=== PATIENT | female | born 1955 | race Caucasian/White ===

== ENCOUNTER 2019-06-28 11:13 | Observation (INO) | payer OTHER ==
[2019-06-28 11:26] LABS: Glucose,Whole Blood 348 mg/dL (75-99)
--- NOTE | 2019-06-28 11:44 | ED ---
General Adult HPI - General Chief complaint: Recheck/Abnormal Lab/Rx Stated complaint: High Blood Sugar Time Seen by Provider: 06/28/19 11:27 Source: patient Mode of arrival: ambulatory Limitations: no limitations - History of Present Illness Initial comments: Patient presents the ED with her daughter for evaluation. Patient states that she has had intermittent left visual field "distortion" for the past week or so and she states that she had another episode at about 8:30am this morning. She states that her episode this morning lasted for about 15 minutes, which was longer than prior episodes lasted, so she called her daughter and decided to com e to the ED. Patient states that she checked her blood glucose prior to coming to the ED, and it was in the low 300s. Patient states that she is not a known diabetic. Patient also states that her blood pressure reading was elevated this morning, and she states that she has not a known hypertensive. Patient states that she has not seen a physician in many years, and she denies having a primary care provider. Patient denies having any symptoms whatsoever currently. Patient denies having any pain, fever or chills, headache, focal numbness/weakness, dizziness, speech difficulty, eye pain, chest pain, dyspnea, cough or cold symptoms, palpitations, abdominal pain, nausea/vomiting/diarrhea, dysuria or urinary symptoms, or any other symptoms or complaints. - Related Data Allergies Allergy/AdvReac Type Severity Reaction Status Date / Time No Known Allergies Allergy Verified 06/28/19 11:25 Review of Systems ROS Statement: Those systems with pertinent positive or pertinent negative responses have been documented in the HPI. ROS Other: All systems not noted in ROS Statement are negative. Past Medical History Past Medical History: No Reported History History of Any Multi-Drug Resistant Organisms: None Reported Past Surgical History: No Surgical Hx Reported Past Psychological History: No Psychological Hx Reported Smoking Status: Former smoker Past Alcohol Use History: None Reported Past Drug Use History: None Reported General Exam Limitations: no limitations General appearance: alert, in no apparent distress Head exam: Present: atraumatic, normocephalic Eye exam: Present: normal appearance, PERRL, EOMI ENT exam: Present: mucous membranes moist Neck exam: Present: other (Trachea is in midline) Respiratory exam: Present: normal lung sounds bilaterally. Absent: respiratory distress, wheezes, rales, rhonchi Cardiovascular Exam: Present: regular rate, normal rhythm, normal heart sounds, other (Normal radial pulses bilaterally) GI/Abdominal exam: Present: soft. Absent: distended, tenderness Extremities exam: Present: full ROM. Absent: tenderness, pedal edema, calf tenderness Neurological exam: Present: alert, oriented X3, CN II-XII intact, other (Normal finger to nose exam bilaterally). Absent: motor sensory deficit Psychiatric exam: Present: normal affect, normal mood Skin exam: Present: warm, dry, intact, normal color Course Vital Signs 06/28/19 06/28/19 06/28/19 11:20 11:40 12:15 Temperature 98.1 F 97.6 F Pulse Rate 111 H 113 H 109 H Pulse Rate [ Credit Control Assistant ] Respiratory 19 15 15 Rate Blood Pressure 189/103 176/114 182/112 O2 Sat by Pulse 98 94 L 94 L Oximetry 06/28/19 06/28/19 12:16 12:58 Temperature Pulse Rate 119 H Pulse Rate [ 113 H Credit Control Assistant ] Respiratory 15 15 Rate Blood Pressure 149/102 O2 Sat by Pulse 97 Oximetry - Reevaluation(s) Reevaluation #1: 06/28/19 13:16 Patient continues to deny having any symptoms or visual disturbance while in the ED. She continues to have a normal neurological exam. Patient's blood pressure has improved, but is still elevated. Given the patient is currently asymptomatic, will not acutely treat her elevated blood pressure. Patient and family are aware of the patient's test results, and patient agrees with hospital admission at this time. 06/28/19 13:49 Case, H&P, test results and ED management were discussed with Dr. Daniels who is currently in the ED. He accepts hospital floor admission. He has no further rectal condition at this time. EKG Findings - EKG Comments: EKG Findings:: Sinus tachycardia, ventricular rate of 106 bpm, no ectopy, normal CT and QRS intervals, normal QT interval, normal axis, no ST or T-wave abnormality Medical Decision Making - Medical Decision Making Given the patient's symptoms of transient and intermittent left visual field disturbances over the past week or so, I feel that the patient should be admitted to the hospital for a TIA workup. Patient's blood glucose is elevated, but she is not acidotic or ketotic. Patient was given a liter of IV normal saline in the ED. Will not treat the patient's elevated blood pressure given that she is a symptomatic. Patient agrees with hospital admission at this time. Patient was given aspirin 325 mg by mouth in the emergency department. - Lab Data Result diagrams: 06/28/19 11:41 06/28/19 11:41 Lab Results 06/28/19 06/28/19 06/28/19 Range/Units 11:24 11:41 11:41 WBC 8.9 (3.8-10.6) k/uL RBC 5.37 (3.80-5.40) m/uL Hgb 16.0 (11.4-16.0) gm/dL Hct 45.6 (34.0-46.0) % MCV 84.8 (80.0-100.0) fL MCH 29.7 (25.0-35.0) pg MCHC 35.0 (31.0-37.0) g/dL RDW 12.6 (11.5-15.5) % Plt Count 394 (150-450) k/uL Neutrophils % 68 % Lymphocytes % 25 % Monocytes % 4 % Eosinophils % 1 % Basophils % 0 % Neutrophils # 6.0 (1.3-7.7) k/uL Lymphocytes # 2.2 (1.0-4.8) k/uL Monocytes # 0.4 (0-1.0) k/uL Eosinophils # 0.1 (0-0.7) k/uL Basophils # 0.0 (0-0.2) k/uL PT (9.0-12.0) sec INR (<1.2) APTT (22.0-30.0) sec Sodium 136 L (137-145) mmol/L Potassium 4.2 (3.5-5.1) mmol/L Chloride 102 (98-107) mmol/L Carbon Dioxide 23 (22-30) mmol/L Anion Gap 11 mmol/L BUN 13 (7-17) mg/dL Creatinine 0.58 (0.52-1.04) mg/dL Est GFR (CKD-EPI)AfAm >90 (>60 ml/min/1.73 sqM) Est GFR (CKD-EPI)NonAf >90 (>60 ml/min/1.73 sqM) Glucose 357 H (74-99) mg/dL POC Glucose (mg/dL) 348 H (75-99) mg/dL POC Glu Personal Financial Advisor ID Juliet Lopez Calcium 9.6 (8.4-10.2) mg/dL Total Bilirubin 0.7 (0.2-1.3) mg/dL AST 26 (14-36) U/L ALT 32 (4-34) U/L Alkaline Phosphatase 89 (38-126) U/L Troponin I (0.000-0.034) ng/mL Total Protein 7.2 (6.3-8.2) g/dL Albumin 4.3 (3.5-5.0) g/dL Acetone, Qual Negative (Negative) 06/28/19 06/28/19 Range/Units 11:41 11:41 WBC (3.8-10.6) k/uL RBC (3.80-5.40) m/uL Hgb (11.4-16.0) gm/dL Hct (34.0-46.0) % MCV (80.0-100.0) fL MCH (25.0-35.0) pg MCHC (31.0-37.0) g/dL RDW (11.5-15.5) % Plt Count (150-450) k/uL Neutrophils % % Lymphocytes % % Monocytes % % Eosinophils % % Basophils % % Neutrophils # (1.3-7.7) k/uL Lymphocytes # (1.0-4.8) k/uL Monocytes # (0-1.0) k/uL Eosinophils # (0-0.7) k/uL Basophils # (0-0.2) k/uL PT 9.6 (9.0-12.0) sec INR 0.9 (<1.2) APTT 23.1 (22.0-30.0) sec Sodium (137-145) mmol/L Potassium (3.5-5.1) mmol/L Chloride (98-107) mmol/L Carbon Dioxide (22-30) mmol/L Anion Gap mmol/L BUN (7-17) mg/dL Creatinine (0.52-1.04) mg/dL Est GFR (CKD-EPI)AfAm (>60 ml/min/1.73 sqM) Est GFR (CKD-EPI)NonAf (>60 ml/min/1.73 sqM) Glucose (74-99) mg/dL POC Glucose (mg/dL) (75-99) mg/dL POC Glu Personal Financial Advisor ID Calcium (8.4-10.2) mg/dL Total Bilirubin (0.2-1.3) mg/dL AST (14-36) U/L ALT (4-34) U/L Alkaline Phosphatase (38-126) U/L Troponin I <0.012 (0.000-0.034) ng/mL Total Protein (6.3-8.2) g/dL Albumin (3.5-5.0) g/dL Acetone, Qual (Negative) - Radiology Data Radiology results: report reviewed (Noncontrast head CT shows no acute intracranial abnormality), image reviewed (Chest x-ray is negative) Disposition Clinical Impression: Hyperglycemia, Hypertension, Visual disturbance Disposition: ADMITTED IP TO THIS HOSP Condition: Stable Is patient prescribed a controlled substance at d/c from ED?: No Referrals: Tracey Rojas DO [Primary Care Provider] - 1-2 days Time of Disposition: 13:49
[2019-06-28] MEDS ORDERED: SODIUM CHLORIDE 0.9% 1,000 ML IV ONE (12:19)
--- NOTE | 2019-06-28 12:24 | XR ---
EXAMINATION TYPE: XR chest 2V DATE OF EXAM: 06/28/2019 COMPARISON: NONE HISTORY: Hyperglycemia and hypertension. Vision defect. TECHNIQUE: Frontal and lateral views of the chest are obtained. FINDINGS: There is no focal air space opacity, pleural effusion, or pneumothorax seen. The cardiac silhouette size is within normal limits. Overlying EKG leads. The osseous structures are intact. IMPRESSION: No acute cardiopulmonary process.
--- NOTE | 2019-06-28 12:26 | CT ---
EXAMINATION TYPE: CT brain wo con DATE OF EXAM: 06/28/2019 HISTORY: Left sided blurriness and vision changes. CT DLP: 1011.4 mGycm. Automated Exposure Control for Dose Reduction was Utilized. TECHNIQUE: CT scan of the head is performed without contrast. COMPARISON: None. FINDINGS: There is no acute intracranial hemorrhage or midline shift identified. There is diffuse v entricular and sulcal prominence consistent with diffuse age-related cerebral atrophy. The quijano-white matter differentiation is fairly well-maintained. The globes are intact and the visualized sinuses are clear. IMPRESSION: No acute intracranial hemorrhage or midline shift. There is mild diffuse age-related ce rebral atrophy noted.
[2019-06-28 12:27] LABS: Basophils % (A) 0 %; Eosinophils # (A) 0.1 k/uL (0-0.7); Eosinophils % (A) 1 %; HCT 45.6 % (34.0-46.0); Lymphocytes # (A) 2.2 k/uL (1.0-4.8); Lymphocytes % (A) 25 %; MCH 29.7 pg (25.0-35.0); MCV 84.8 fL (80.0-100.0); Mean Platelet Volume 7.5; Monocytes # (A) 0.4 k/uL (0-1.0); Monocytes % (A) 4 %; Neutrophils % (A) 68 %; Platelet Count 394 k/uL (150-450); RBC 5.37 m/uL (3.80-5.40); RDW 12.6 % (11.5-15.5); WBC 8.9 k/uL (3.8-10.6)
[2019-06-28 12:34] LABS: INR 0.9 (<1.2); Partial Thromboplastin Time 23.1 sec (22.0-30.0); Prothrombin Time 9.6 sec (9.0-12.0)
[2019-06-28] MEDS ORDERED: ASPIRIN 325 MG TAB PO STA (12:37)
[2019-06-28 12:39] LABS: ALT 32 U/L (4-34); AST 26 U/L (14-36); African American GFR (CKD) >90 (>60 ml/min/1.73 sqM); Albumin 4.3 g/dL (3.5-5.0); Alkaline Phosphatase 89 U/L (38-126); Anion Gap 11 mmol/L; Blood Urea Nitrogen 13 mg/dL (7-17); Calcium 9.6 mg/dL (8.4-10.2); Carbon Dioxide 23 mmol/L (22-30); Chloride 102 mmol/L (98-107); Glucose 357 mg/dL (74-99); Non-African American GFR(CKD) >90 (>60 ml/min/1.73 sqM); Potassium 4.2 mmol/L (3.5-5.1); Sodium 136 mmol/L (137-145); Total Bilirubin 0.7 mg/dL (0.2-1.3); Total Protein 7.2 g/dL (6.3-8.2)
[2019-06-28] MEDS: SODIUM CHLORIDE 0.9% 1,000 ML IV SCH (14:15)
[2019-06-28 14:19] LABS: Glucose,Whole Blood 283 mg/dL (75-99)
--- NOTE | 2019-06-28 14:26 | P.HPIM ---
History of Present Illness this is a pleasant 64 years old female with no significant past medical history, she does not follow up with her PCP. patient presents because she has transient blurry vision in her left eye that last for 2-3 minutes each time, this been going on for about a week however this morning it lasted some more about 15-20 minutes so she came to emergency room. Currently her vision is back to normal. She denies headache. No confusion, no weakness or abnormal sensation. on admission patient is tachycardic with heart rate of 113-119, blood pressure was elevated 182/112, currently 149/102. Unremarkable CBC, INR, Sugar Was Elevated at [address] of the brain: Negative for acute process per radiologistthe chest x-ray no acute process.EKG showing sinus tachycardia at [address]-T changes and QTC of 454.in the emergency room patient was started on aspirin 325 mg and received normal saline boluses of 1 L and at 80 mL per hour Review of Systems CONSTITUTIONAL: No fever, no malaise, no fatigue. HEENT: No recent visual problems or hearing problems. Denied any sore throat. CARDIOVASCULAR: No orthopnea, PND, no palpitations, no syncope. PULMONARY: No shortness of breath, no cough, no hemoptysis. GASTROINTESTINAL: No diarrhea, no nausea, no vomiting, no abdominal pain. Normoactive bowel sounds. NEUROLOGICAL: No headaches, no weakness, no numbness. HEMATOLOGICAL: Denies any bleeding or petechiae. GENITOURINARY: Denies any burning micturition, frequency, or urgency. MUSCULOSKELETAL/RHEUMATOLOGICAL: Denies any joint pain, swelling, or any muscle pain. ENDOCRINE: Denies any polyuria or polydipsia. Past Medical History Past Medical History: No Reported History History of Any Multi-Drug Resistant Organisms: None Reported Past Surgical History: No Surgical Hx Reported Past Psychological History: No Psychological Hx Reported Smoking Status: Former smoker Past Alcohol Use History: None Reported Past Drug Use History: None Reported Medications and Allergies Allergies Allergy/AdvReac Type Severity Reaction Status Date / Time No Known Allergies Allergy Verified 06/28/19 11:25 Physical Exam Vitals: Vital Signs Temp Pulse Pulse Resp BP Pulse Ox 06/28/19 12:58 119 H 15 149/102 97 06/28/19 12:16 113 H 15 06/28/19 12:15 109 H 15 182/112 94 L 06/28/19 11:40 97.6 F 113 H 15 176/114 94 L 06/28/19 11:20 98.1 F 111 H 19 189/103 98 Intake and Output 06/27/19 06/28/19 06/28/19 22:59 06:59 14:59 Intake Total 10 Balance 10 Intake: IV 10 Invasive Line 1 10 Other: Weight 81.647 kg GENERAL: The patient is alert and oriented x3, not in any acute distress. Well developed, well nourished. -HEENT: Pupils are round and equally reacting to light. EOMI. No scleral icterus. No conjunctival pallor. Normocephalic, atraumatic. No pharyngeal erythema. No thyromegaly. dry mucous membranes CARDIOVASCULAR: S1 and S2 present. No murmurs, rubs, or gallops. PULMONARY: Chest is clear to auscultation, no wheezing or crackles. ABDOMEN: Soft, nontender, nondistended, normoactive bowel sounds. No palpable organomegaly. MUSCULOSKELETAL: No joint swelling or deformity. EXTREMITIES: No cyanosis, clubbing, or pedal edema. NEUROLOGICAL: Gross neurological examination did not reveal any focal deficits. SKIN: No rashes. No petechiae Results CBC & Chem 7: 06/28/19 11:41 06/28/19 11:41 Labs: Abnormal Lab Results - Last 24 Hours (Table) 06/28/19 06/28/19 Range/Units 11:24 11:41 Sodium 136 L (137-145) mmol/L Glucose 357 H (74-99) mg/dL POC Glucose (mg/dL) 348 H (75-99) mg/dL Assessment and Plan Assessment: transient blurred vision in her left eye for about a week,possible TIA Hyperglycemia, rule out diabetes mellitus dehydration hypertension Plan: this is a pleasant 64 years old female who presents with possible TIA, we'll ask for neurological evaluation. Start insulin sliding scale. Start blood pressure medication with metoprolol.check hemoglobin A1c. Continue with IV fluids. Labs and medication were reviewed.. Continue same treatment. Continue with symptomatic treatment. Resume home medication. Monitor lytes and vitals. DVT and GI prophylaxis. Further recommendations of the clinical course of the patient DVT prophylaxis: Subcutaneous heparin GI Prophylaxis: Pepcid Prognosis is guarded
--- NOTE | 2019-06-28 16:22 | P.CNNES ---
History of Present Illness Consult date: 06/28/19 Requesting physician: Cullen Daniels Reason for Consult: Recurrent TIA History of Present Illness: Patient is a 64-year-old female with no significant past medical history, came with recurrent left-sided visual symptoms. Patient states the first episode happened last 06/22/2019 when she noticed distorted vision in the left half of visual field in both eyes. Patient states that she did close one, and then the other eye, and it involved both eyes, only the left half of the visual field. Patient states that it felt as if there was an earthquake, and distorted vision, everything was falling down. The episode lasted for 2-3 minutes and then resolved. She has been having these episodes about every 2-5 hours since then, each lasting for about 2-3 minutes and then clears up. Today was the longest, lasting for 15-20 minutes, which made her concerned and she decided to come to the ER. Patient denies any other focal neurological symptoms whatsoever associated with this. Denies any chest pain, shortness of breath. Patient denies any history of hypertension and diabetes. She has smoked 1-1/2 pack per day for 10 years, quit 20+ years ago. Patient does not take any antiplatelet medication at home. Patient underwent EKG which showed sinus tachycardia. Chest x-ray was normal. Computed tomography scan of the head showed no acute intracranial hemorrhage or midline shift. There is mild diffuse age-related cerebral atrophy noted. Patient's blood test shows normal CBC, PT/PTT. Sodium is 136, potassium 4.2. Her blood sugars are running around 350 range. Liver panel is normal. Review of Systems As mentioned in detail in HPI. Past Medical History Past Medical History: No Reported History Additional Past Medical History / Comment(s): Migraines many years ago History of Any Multi-Drug Resistant Organisms: None Reported Past Surgical History: Tubal Ligation Past Anesthesia/Blood Transfusion Reactions: No Reported Reaction Smoking Status: Former smoker - Past Family History Father Family Medical History: Diabetes Mellitus Additional Family Medical History / Comment(s): Father is 93 yrs old. Mother Family Medical History: Diabetes Mellitus Additional Family Medical History / Comment(s): Heart problems. Mother is . Medications and Allergies Home Medications Medication Instructions Recorded Confirmed Type Ibuprofen [Advil] 400 mg PO Q12H PRN 06/28/19 06/28/19 History Allergies Allergy/AdvReac Type Severity Reaction Status Date / Time No Known Allergies Allergy Verified 06/28/19 14:34 Physical Examination - Vital Signs Vital Signs: Vital Signs Temp Pulse Pulse Resp BP Pulse Ox 06/28/19 14:38 97 18 180/1 94 L 06/28/19 14:01 98.4 F 96 17 186/107 99 06/28/19 12:58 119 H 15 149/102 97 06/28/19 12:16 113 H 15 06/28/19 12:15 109 H 15 182/112 94 L 06/28/19 11:40 97.6 F 113 H 15 176/114 94 L 06/28/19 11:20 98.1 F 111 H 19 189/103 98 Intake and Output 06/28/19 06/28/19 06/28/19 06:59 14:59 22:59 Intake Total 1010 Balance 1010 Intake: IV 10 Invasive Line 1 10 Amount of Fluid Infused ( 1000 ml) Other: Weight 81.647 kg On examination patient is a late middle aged female, in no distress. Patient is alert and awake fully oriented. Her speech and language functions are normal. Attention and concentration fund of knowledge is adequate. On cranial nerve examination pupils are round and reacting to light. Visual salcido are full on confrontation in either eyes. Extraocular muscles are intact. Face is symmetric and tongue protrudes to the midline. Palatal elevation and sensation normal. On muscle strength testing there is no pronator drift and the strength is normal in arms and legs distally and proximally. Reflexes are symmetric and plantars downgoing. Sensory touch is equal. No ataxia for [id number] testing. Tone and bulk of muscles normal. There is no carotid bruit or murmur and peripheral pulses are present. Results - Laboratory Findings CBC and BMP: 06/28/19 11:41 06/28/19 11:41 Abnormal Lab Findings: Abnormal Labs 06/28/19 06/28/19 06/28/19 11:24 11:41 14:06 Sodium 136 L Glucose 357 H POC Glucose (mg/dL) 348 H 283 H Assessment and Plan Assessment: * Recurrent TIAs manifesting with distorted vision in the left homonymous hemianopic visual field, involving both eyes. Symptoms completely resolved with NIH stroke scale is 0. * Hypertension * Probable new onset diabetes. Plan: * CTA of head and neck to rule out any large vessel occlusion or stenosis. * 2-D echo with bubble study, to rule out PFO. * Agree with checking hemoglobin A1c. We will also check fasting lipid panel. * Continue aspirin 325 mg daily.
[2019-06-28 16:53] LABS: Glucose,Whole Blood 259 mg/dL (75-99)
[2019-06-28] MEDS: INSULIN ASPART (NovoLOG) 100 UNIT/ML VIAL SQ SCH ×2 (18:19→21:39)
[2019-06-28] MEDS: HEPARIN SODIUM,PORCINE 5,000 UNIT/ML 1 ML VIAL SQ SCH (20:04)
[2019-06-28] MEDS: FAMOTIDINE 20 MG/2 ML VIAL IV SCH (20:04)
[2019-06-28] MEDS ORDERED: GLIMEPIRIDE 1 MG TAB PO ONE (20:09)
--- NOTE | 2019-06-28 20:29 | CT ---
EXAMINATION TYPE: CT angio head neck DATE OF EXAM: 06/28/2019 COMPARISON: None HISTORY: Neck pain and headache x 1 month, getting progressively worse. CT DLP: 505.2 mGycm Automated exposure control for dose reduction was used. CONTRAST: Performed with IV Contrast, patient injected with 65 mL of Isovue 370. Multiple axial sections were obtained from the aortic arch to the vertex of the brain with intravenou s contrast. There are 3-D post processed images There is normal branching pattern of the great vessels on the aortic arch. There is bilateral arteria l flow in the subclavian arteries. There is bilateral arterial flow in the common internal and digital sales director al carotid arteries. There is bilateral arterial flow in the vertebral arteries which are fairly symm etric. There is no evidence of carotid or vertebral artery aneurysm or dissection. I see no evidence of hemodynamic stenosis of the carotid or vertebral arteries. There is arterial flow in the vertebrob asilar artery system. There is normal contrast opacification of the venous sinuses. There is arterial flow in the anterior middle and posterior cerebral arteries. I see no evidence of hemodynamic stenosis. There is no sign o f aneurysm or neovascularity. There is no mass effect. IMPRESSION: Negative CT angiogram of the neck. Negative CT angiogram of the brain.
[2019-06-28 20:46] LABS: Glucose,Whole Blood 239 mg/dL (75-99)
[2019-06-28] MEDS ORDERED: METOPROLOL SUCCINATE (ER) 25 MG TAB.ER.24H PO SCH (21:00)
[2019-06-29 00:13] VITALS: TEMP 97.8
[2019-06-29] MEDS: SODIUM CHLORIDE 0.9% 1,000 ML IV SCH (02:30)
[2019-06-29 03:14] LABS: Hemoglobin A1C 13.4 % (4.0-6.0)
[2019-06-29 06:04] LABS: Glucose,Whole Blood 173 mg/dL (75-99)
[2019-06-29] MEDS: INSULIN ASPART (NovoLOG) 100 UNIT/ML VIAL SQ SCH ×2 (06:29→12:49)
[2019-06-29 06:36] LABS: Basophils % (A) 0 %; Eosinophils # (A) 0.2 k/uL (0-0.7); Eosinophils % (A) 3 %; HCT 43.6 % (34.0-46.0); HGB 15.1 gm/dL (11.4-16.0); Lymphocytes % (A) 39 %; MCH 29.8 pg (25.0-35.0); MCHC 34.6 g/dL (31.0-37.0); MCV 86.3 fL (80.0-100.0); Mean Platelet Volume 7.9; Monocytes # (A) 0.5 k/uL (0-1.0); Monocytes % (A) 6 %; Neutrophils # (A) 3.7 k/uL (1.3-7.7); Neutrophils % (A) 49 %; Platelet Count 342 k/uL (150-450); RBC 5.05 m/uL (3.80-5.40); RDW 12.7 % (11.5-15.5); WBC 7.6 k/uL (3.8-10.6)
[2019-06-29 06:46] LABS: ALT 27 U/L (4-34); AST 24 U/L (14-36); African American GFR (CKD) >90 (>60 ml/min/1.73 sqM); Albumin 3.4 g/dL (3.5-5.0); Alkaline Phosphatase 68 U/L (38-126); Anion Gap 9 mmol/L; Blood Urea Nitrogen 13 mg/dL (7-17); Calcium 8.8 mg/dL (8.4-10.2); Carbon Dioxide 22 mmol/L (22-30); Chloride 107 mmol/L (98-107); Cholesterol 248 mg/dL (<200); Glucose 170 mg/dL (74-99); HDL Cholesterol 37 mg/dL (40-60); LDL Cholesterol,Calculated 155 mg/dL (0-99); Non-African American GFR(CKD) >90 (>60 ml/min/1.73 sqM); Potassium 3.7 mmol/L (3.5-5.1); Sodium 138 mmol/L (137-145); Total Bilirubin 0.7 mg/dL (0.2-1.3); Total Protein 5.9 g/dL (6.3-8.2); Triglycerides 282 mg/dL (<150)
[2019-06-29] MEDS ORDERED: GLIMEPIRIDE 2 MG TAB PO SCH (07:30)
[2019-06-29] MEDS: FAMOTIDINE 20 MG/2 ML VIAL IV SCH (08:24)
[2019-06-29] MEDS: HEPARIN SODIUM,PORCINE 5,000 UNIT/ML 1 ML VIAL SQ SCH (08:24)
[2019-06-29 08:29] VITALS: RESP 16
[2019-06-29] MEDS ORDERED: ASPIRIN 325 MG TAB PO SCH (09:00)
[2019-06-29] MEDS ORDERED: METOPROLOL TARTRATE 25 MG TAB PO SCH (09:00)
[2019-06-29] MEDS ORDERED: ATORVASTATIN 40 MG TAB PO SCH (10:45)
--- NOTE | 2019-06-29 10:45 | P.PN ---
Subjective Progress Note Date: 06/29/19 Patient denies any new neurological symptoms. Patient has not had any further visual symptoms since yesterday morning. Denies headache. Objective - Vital Signs Vital signs: Vital Signs Temp 97.8 F 06/29/19 00:10 Pulse 90 06/29/19 08:00 Resp 16 06/29/19 08:00 BP 161/93 06/29/19 08:00 Pulse Ox 97 06/29/19 08:00 Intake & Output 06/28/19 06/29/19 06/29/19 18:59 06:59 18:59 Intake Total 1260 250 Balance 1260 250 Weight 81.647 kg 87.1 kg Intake: IV 20 Invasive Line 1 20 Amount of Fluid Infused ( 1000 ml) Oral 240 250 Other: Voiding Method Toilet # Voids 2 1 2 - Exam Completely nonfocal. Visual salcido are full. No neglect. - Labs CBC & Chem 7: 06/29/19 05:09 06/29/19 05:09 Labs: Abnormal Lab Results - Last 24 Hours (Table) 06/28/19 06/28/19 06/28/19 Range/Units 11:24 11:41 11:41 Sodium 136 L (137-145) mmol/L Glucose 357 H (74-99) mg/dL POC Glucose (mg/dL) 348 H (75-99) mg/dL Hemoglobin A1c 13.4 H (4.0-6.0) % Total Protein (6.3-8.2) g/dL Albumin (3.5-5.0) g/dL Triglycerides (<150) mg/dL Cholesterol (<200) mg/dL LDL Cholesterol, Calc (0-99) mg/dL HDL Cholesterol (40-60) mg/dL 06/28/19 06/28/19 06/28/19 Range/Units 14:06 16:50 20:45 Sodium (137-145) mmol/L Glucose (74-99) mg/dL POC Glucose (mg/dL) 283 H 259 H 239 H (75-99) mg/dL Hemoglobin A1c (4.0-6.0) % Total Protein (6.3-8.2) g/dL Albumin (3.5-5.0) g/dL Triglycerides (<150) mg/dL Cholesterol (<200) mg/dL LDL Cholesterol, Calc (0-99) mg/dL HDL Cholesterol (40-60) mg/dL 06/29/19 06/29/19 Range/Units 05:09 06:02 Sodium (137-145) mmol/L Glucose 170 H (74-99) mg/dL POC Glucose (mg/dL) 173 H (75-99) mg/dL Hemoglobin A1c (4.0-6.0) % Total Protein 5.9 L (6.3-8.2) g/dL Albumin 3.4 L (3.5-5.0) g/dL Triglycerides 282 H (<150) mg/dL Cholesterol 248 H (<200) mg/dL LDL Cholesterol, Calc 155 H (0-99) mg/dL HDL Cholesterol 37 L (40-60) mg/dL Assessment and Plan Assessment: * Recurrent TIAs manifesting with distorted vision in the left homonymous hemianopic visual field, involving both eyes. Symptoms completely resolved with NIH stroke scale is 0. * Hypertension * New onset diabetes. * Hyperlipidemia Plan: * CTA of head and neck negative for any large vessel occlusion or stenosis. * Await 2-D echo with bubble study, to rule out PFO. Patient desperate to go home. May perform 2-D echo as an outpatient. * Hemoglobin A1c 13.4 consistent with newly diagnosed, uncontrolled diabetes. Further recommendations regarding diabetes as per IM. * Fasting lipid panel showed cholesterol 248, LDL 155, HDL 37 triglycerides 282. Agree with starting Lipitor 40 mg daily. * Optimize control of hypertension as per IM. * Continue aspirin 325 mg daily. * Follow-up with manager aviation as an outpatient to evaluate for visual salcido, and rule out any diabetic retinopathy. * Neurologically clear for discharge with above recommendations.
[2019-06-29] MEDS ORDERED: METOPROLOL TARTRATE 25 MG TAB PO STA (10:57)
[2019-06-29 11:59] LABS: Glucose,Whole Blood 226 mg/dL (75-99)
--- NOTE | 2019-06-29 12:41 | P.DS ---
Providers Date of admission: 06/28/19 13:50 Attending physician: Cullen Daniels MD Consults: 06/28/19 13:57 Consult Physician Urgent Consulting Provider: Rudi Mathew Consult Reason/Comments: possilbe TIA Do you want consulting provider notified?: Yes Primary care physician: Tracey Ramos [facility] Course: Diagnoses: transient blurred vision in her left eye for about a week, mostly related to her uncontrolled diabetes and hyperglycemia. This likely but possible TIA Hyperglycemia, new onset diabetes mellitus dehydration, improved hypertension, new onset Medical Non-adherence before Hospital course: this is a pleasant 64 years old female with no significant past medical history, she does not follow up with her PCP. patient presents because she has transient blurry vision in her left eye for the last week that last for 2-3 minutes each time, however when it lasted longer for more about 15-20 minutes so she came to emergency room. No wound patient mentions the night before she had a big meal. Currently her vision is back to normal. She denies headache. No confusion , no weakness in limbs or abnormal sensation. on admission patient is tachycardic with heart rate of 113-119, blood pressure was elevated 182/112, currently 149/102. Unremarkable CBC, INR, Sugar Was Elevated at 348 and 357. Hemoglobin A1c was 13.4%, CT of the brain: Negative for acute process per radiologistthe chest x-ray no acute process.EKG showing sinus tachycardia at [address]-T changes and QTC of 454.in the emergency room patient was started on aspirin 325 mg and received normal saline boluses of 1 L and at 80 mL per hour. The patient remains asymptomatic. Neurologist recommended CTA of the head and neck which was negative. Also he recommended 2-D echo with bubble study, to rule out PFO. However Patient desperate to go home. And neurologist states May perform 2-D echo as an outpatient. He shouldn't is made aware of her new diagnosis of diabetes mellitus and hypertension, because she recently got contrast then metformin was not prescribed but this can be started outpatient after checking renal function by her PCP. Assistants patient was started on Amaryl and her sugar this morning is better at 173 and 226. Also patient was started on metoprolol 25 mg and increased to 50 mg twice a day for better blood pressure control Her lipid was abnormal and she was started on Lipitor 40 mg daily. Also patient will be discharged on aspirin 325 mg daily as recommended by neurologist. Boat Mechanic outpatient is recommended to rule out diabetic retinopathy. TSH came back normal at 4.5. On the day of discharge patient denies any other symptoms and she was eager to go home today Patient was cleared for discharge by neurologist Problems and management plan were discussed with the patient and he verbalized understanding and acceptance Patient was found stable and can be discharged home however he needs follow-up as an outpatient. Patient was instructed to follow up with PCP within one week and patient agrees Patient has been at bedside there were today is and appointment is could not be made. Patient and are very enthusiastic of making her appointment with her PCP, neurologist, multimedia editor, and assisted living director as recommended. states that she will follow up with Dr. Ramos his own PCP and family. Prescription for glucometer is provided for the patient with instructions Patient talked to Manufacturing Group Leader as well Gen: patient is a AAOx3, no distress CVS: S1-S2, RRR, no murmur Lungs: B/L CTA, no wheezing Abdomen: soft, no distention, no tenderness, positive bowel sounds Extremity: no leg edema or induration Time spent more than 35 minutes Patient Condition at Discharge: Stable Plan - Discharge Summary Discharge Rx Participant: No New Discharge Prescriptions: No Action Ibuprofen [Advil] 400 mg PO Q12H PRN PRN Reason: Pain Or Fever > 100.5 Discharge Medication List Ibuprofen [Advil] 400 mg PO Q12H PRN 06/28/19 [History] Follow up Appointment(s)/Referral(s): Hugo Mcdonald MD [STAFF PHYSICIAN] - 1 Week Tracey Ramos DO [Primary Care Provider] - 1-2 days Minna Jarvis MD [STAFF PHYSICIAN] - 1 Week (echo bubble study r/o pfo )
[2019-06-29 12:49] VITALS: BMI 34.0
[2019-06-29] MEDS ORDERED: METOPROLOL TARTRATE 50 MG TAB PO STA (13:04)
[2019-06-29] MEDS ORDERED: amLODIPine 5 MG TAB PO SCH (13:15)
[2019-06-29] MEDS ORDERED: amLODIPine 5 MG TAB PO STA (13:19)
[2019-06-29] MEDS ORDERED: hydrALAZINE HCL 25 MG TAB PO SCH ×2 (13:30)
[2019-06-29 14:28] VITALS: BP 165/85; PULSE 95
[2019-06-29] MEDS ORDERED: METOPROLOL TARTRATE 50 MG TAB PO SCH (21:00)
== END 2019-06-29 15:00 | disposition home or self-care (01) ==
LOC: EC 11:13 → 3SCARD 13:50
PROVIDERS: ADMIT Internal Medicine; ATTEND Internal Medicine
DX: E11.65 Type 2 diabetes mellitus with hyperglycemia (principal); H53.462 Homonymous bilateral field defects, left side; H53.461 Homonymous bilateral field defects, right side; E86.0 Dehydration; I10 Essential (primary) hypertension; G31.9 Degenerative disease of nervous system, unspecified; E78.5 Hyperlipidemia, unspecified; Z91.19 Patient's noncompliance with other medical treatment and regimen; Z87.891 Personal history of nicotine dependence; Z86.69 Personal history of other diseases of the nervous system and sense organs; Z98.51 Tubal ligation status; Z83.3 Family history of diabetes mellitus; Z82.49 Family history of ischemic heart disease and other diseases of the circulatory system
CPT/HCPCS: 96372 ×2; 96360; 96361; 99285; 36415; 93005; 80053 ×2; 80061; 84443; 82009; 84484; 85025 ×2; 85610; 85730; 83036; 71046; 70496; 70450; 70498; G0378 ×2; J1644 ×2; Q9967